=== PATIENT | female | born 1940 | race African-American/Black ===

== ENCOUNTER 2020-07-04 05:10 | Inpatient (IN) | payer MEDICARE, OTHER ==
[2020-07-04 05:46] LABS: #Basophils 0.1 thou/uL (0.0-0.2); #Eosinphils 0.1 thou/uL (0.0-0.7); #Lymphocytes 3.5 thou/uL (1.20-3.40); #Monocytes 0.7 thou/uL (0.11-0.59); #Neutrophils 4.4 thou/uL (1.40-6.50); %Eosinophils 1.4 % (0.0-10.0); %Lymphocytes 40.1 % (21.0-51.0); %Neutrophils 49.5 % (42.0-75.0); Hemoglobin 12.6 g/dL (12.0-16.0); Mean Corpuscular HGB CONC 31.4 g/dL (32.0-36.0); Mean Corpuscular Hemoglobin 29.2 pg (27.0-31.0); Mean Corpuscular Volume 93.1 fL (78.0-98.0); Platelet Count 289 thou/uL (130-400); RBC Distribution Width 13.1 % (11.5-14.5); White Blood Cell (WBC) Count 8.8 thou/uL (4.8-10.8)
[2020-07-04] MEDS ORDERED: Albuterol 200 PUFF (6.7GM INHALER) ONE (06:18)
[2020-07-04 06:20] LABS: ALT (SGPT) 59 U/L (8-55); AST (SGOT) 58 U/L (5-34); Albumin 3.7 g/dL (3.4-4.8); Alkaline Phosphatase 102 U/L (40-110); Anion Gap 14 mmol/L (10-20); BUN (Urea Nitrogen) 10 mg/dL (9.8-20.1); Bilirubin, Total 0.5 mg/dL (0.2-1.2); Calc. Creatinine Clearance 0 mL/min (70-130); Calcium 8.4 mg/dL (7.8-10.44); Carbon Dioxide 21 mmol/L (23-31); Chloride 105 mmol/L (98-107); Globulin 3.1 g/dL (2.4-3.5); Glucose 216 mg/dL (83-110); Lipase 43 U/L (8-78); Potassium 3.9 mmol/L (3.5-5.1); Protein, Total 6.8 g/dL (5.8-8.1); Sodium 136 mmol/L (136-145)
[2020-07-04] MEDS ORDERED: Magnesium 2 GM/50 ML BAG (IN WATER) ONE (06:20)
[2020-07-04] MEDS ORDERED: methylPREDNISolone Sod Succ/PF 125 MG/2 ML VIAL ONE (06:20)
[2020-07-04] MEDS ORDERED: Furosemide 40 MG/4 ML VIAL ONE (06:52)
[2020-07-04] MEDS ORDERED: Cepastat Lozenges 1 LOZ PO PRN (08:32)
[2020-07-04] MEDS ORDERED: Calcium Carbonate 500 MG ChewTAB PO PRN (08:32)
[2020-07-04] MEDS ORDERED: HumaLOG 300 UNITS/3 ML VIAL SC PRN (08:32)
[2020-07-04] MEDS ORDERED: hydrALAZINE 20 MG/ML VIAL SLOW IVP PRN (08:32)
[2020-07-04] MEDS ORDERED: Ondansetron PF 4 MG/2 ML Vial IVP PRN (08:32)
[2020-07-04] MEDS ORDERED: HYDROcodone/Acetaminophen 5/325 mg Tablet PO PRN (08:32)
[2020-07-04] MEDS ORDERED: Sodium Chloride 0.65% Nasal 44 ML BOT EA NARE PRN (08:32)
[2020-07-04] MEDS ORDERED: Nitroglycerin 0.4 MG TAB (25 Tab Bottle) SL PRN (08:32)
[2020-07-04] MEDS ORDERED: Benzonatate 100 MG CAP PO PRN (08:32)
[2020-07-04] MEDS ORDERED: Labetalol HCl 100 MG/20 ML VIAL SLOW IVP PRN (08:32)
[2020-07-04] MEDS ORDERED: Acetaminophen 500 MG TAB PO PRN (08:32)
[2020-07-04] MEDS ORDERED: Bisacodyl 10 MG SUPP PR PRN (08:32)
[2020-07-04] MEDS ORDERED: GUAIFENESIN SF SOLN 200 MG/10 ML UDCUP PO PRN (08:32)
[2020-07-04] MEDS ORDERED: Dextrose 50% Abboject 50 ML SYRINGE SLOW IVP PRN (08:32)
[2020-07-04] MEDS ORDERED: Dextrose 5% in Water 1,000 ML IV PRN (08:32)
[2020-07-04] MEDS ORDERED: Senokot S 8.6-50 MG TAB PO PRN (08:32)
[2020-07-04 08:41] LABS: SARS-CoV-2 NAA Rapid Test Not Detected (NotDetected)
[2020-07-04] MEDS ORDERED: Losartan 25 MG TAB PO SCH (09:00)
[2020-07-04] MEDS ORDERED: Insulin Glargine 20 UNITS in Pre-Filled Syringe 1 EACH SC SCH (09:00)
[2020-07-04 09:16] LABS: Troponin I Less than 0.010 ng/mL (< 0.028)
[2020-07-04] MEDS ORDERED: Carvedilol 3.125 MG TAB PO SCH (10:45)
[2020-07-04] MEDS ORDERED: Lantus 1000 UNITS/10 ML VIAL SC SCH (10:45)
[2020-07-04] MEDS ORDERED: Doxycycline 100 MG CAP PO SCH (10:45)
[2020-07-04] MEDS ORDERED: Aspirin Chewable 81 MG TAB PO SCH (10:45)
[2020-07-04] MEDS ORDERED: Cilostazol 100 MG TAB PO SCH (10:45)
[2020-07-04] MEDS: Cilostazol 100 MG TAB PO SCH (10:57)
[2020-07-04] MEDS: Magnesium Oxide 400 MG TAB PO SCH (11:00)
[2020-07-04] MEDS: Doxycycline 100 MG CAP PO SCH ×2 (11:01→22:53)
[2020-07-04] MEDS: Carvedilol 3.125 MG TAB PO SCH ×2 (11:01→22:53)
[2020-07-04] MEDS: Aspirin Chewable 81 MG TAB PO SCH (11:01)
[2020-07-04] MEDS: methylPREDNISolone Sod Succ 40 MG VIAL IVP SCH ×2 (11:04→18:05)
[2020-07-04 12:03] LABS: Troponin I 0.024 ng/mL (< 0.028)
[2020-07-04] MEDS: Furosemide 40 MG/4 ML VIAL SLOW IVP SCH (14:43)
[2020-07-04] MEDS: ALPRAZolam 0.5 MG TAB PO PRN (15:23)
[2020-07-04] MEDS ORDERED: Nitroglycerin 2% Ointment 1 INCH/1 GM Packet ONE (15:35)
[2020-07-04 15:46] VITALS: BMI 25.2
[2020-07-04] MEDS ORDERED: Furosemide 20 MG/2 ML VIAL SLOW IVP SCH (21:00)
[2020-07-04] MEDS ORDERED: Spironolactone 25 MG TAB PO SCH (21:00)
[2020-07-04] MEDS: Rosuvastatin 20 MG TAB PO SCH (22:53)
[2020-07-04] MEDS: Nitroglycerin 2% Ointment 1 INCH/1 GM Packet TOP SCH (22:55)
[2020-07-04] MEDS: Lantus 1000 UNITS/10 ML VIAL SC SCH (23:04)
[2020-07-05 03:32] LABS: #Lymphocytes 1.3 thou/uL (1.20-3.40); #Monocytes 0.3 thou/uL (0.11-0.59); #Neutrophils 6.9 thou/uL (1.40-6.50); %Lymphocytes 15.2 % (21.0-51.0); %Monocytes 3.8 % (0.0-10.0); Hemoglobin 12.2 g/dL (12.0-16.0); Mean Corpuscular HGB CONC 33.5 g/dL (32.0-36.0); Mean Corpuscular Hemoglobin 30.9 pg (27.0-31.0); Mean Corpuscular Volume 92.2 fL (78.0-98.0); Platelet Count 253 thou/uL (130-400); RBC Distribution Width 12.9 % (11.5-14.5); Red Blood Cell (RBC) Count 3.94 mill/uL (4.20-5.40); White Blood Cell (WBC) Count 8.6 thou/uL (4.8-10.8)
[2020-07-05 03:56] LABS: ALT (SGPT) 46 U/L (8-55); AST (SGOT) 36 U/L (5-34); Albumin 3.4 g/dL (3.4-4.8); Alkaline Phosphatase 88 U/L (40-110); Anion Gap 16 mmol/L (10-20); BUN (Urea Nitrogen) 10 mg/dL (9.8-20.1); Bilirubin, Total 0.5 mg/dL (0.2-1.2); Calc. Creatinine Clearance 71 mL/min (70-130); Carbon Dioxide 21 mmol/L (23-31); Chloride 107 mmol/L (98-107); Globulin 3.2 g/dL (2.4-3.5); Glucose 135 mg/dL (83-110); Magnesium 1.8 mg/dL (1.6-2.6); Potassium 3.6 mmol/L (3.5-5.1); Protein, Total 6.6 g/dL (5.8-8.1); Sodium 140 mmol/L (136-145)
[2020-07-05] MEDS: methylPREDNISolone Sod Succ 40 MG VIAL IVP SCH ×3 (07:23→12:13)
[2020-07-05] MEDS: Furosemide 40 MG/4 ML VIAL SLOW IVP SCH ×2 (07:23→14:09)
[2020-07-05] MEDS: Lantus 1000 UNITS/10 ML VIAL SC SCH ×2 (08:41→20:42)
[2020-07-05] MEDS: Aspirin Chewable 81 MG TAB PO SCH (08:42)
[2020-07-05] MEDS: Magnesium Oxide 400 MG TAB PO SCH (08:42)
[2020-07-05] MEDS: Cilostazol 100 MG TAB PO SCH (08:42)
[2020-07-05] MEDS: Doxycycline 100 MG CAP PO SCH ×2 (08:43→20:42)
[2020-07-05] MEDS: Carvedilol 3.125 MG TAB PO SCH (08:43)
[2020-07-05] MEDS: Nitroglycerin 2% Ointment 1 INCH/1 GM Packet TOP SCH (08:43)
[2020-07-05] MEDS: Spironolactone 25 MG TAB PO SCH (08:43)
[2020-07-05] MEDS: HumaLOG 300 UNITS/3 ML VIAL SC PRN ×2 (12:14→17:44)
[2020-07-05] MEDS: hydrALAZINE 10 MG TAB PO SCH ×2 (14:09→20:41)
[2020-07-05] MEDS: Rosuvastatin 20 MG TAB PO SCH (20:41)
[2020-07-05] MEDS: Carvedilol 6.25 MG TAB PO SCH (20:42)
[2020-07-06 03:43] LABS: #Monocytes 0.9 thou/uL (0.11-0.59); #Neutrophils 12.2 thou/uL (1.40-6.50); %Basophils 0.2 % (0.0-1.0); %Lymphocytes 12.9 % (21.0-51.0); %Neutrophils 80.9 % (42.0-75.0); Hemoglobin 10.9 g/dL (12.0-16.0); Mean Corpuscular HGB CONC 32.8 g/dL (32.0-36.0); Mean Corpuscular Hemoglobin 30.2 pg (27.0-31.0); Platelet Count 257 thou/uL (130-400); RBC Distribution Width 12.9 % (11.5-14.5); White Blood Cell (WBC) Count 15.1 thou/uL (4.8-10.8)
[2020-07-06] MEDS: Furosemide 40 MG/4 ML VIAL SLOW IVP SCH ×2 (05:25→15:03)
[2020-07-06] MEDS: Lantus 1000 UNITS/10 ML VIAL SC SCH ×2 (08:11→21:15)
[2020-07-06] MEDS: hydrALAZINE 10 MG TAB PO SCH ×3 (08:12→21:15)
[2020-07-06] MEDS: Doxycycline 100 MG CAP PO SCH ×2 (08:12→21:15)
[2020-07-06] MEDS: Spironolactone 25 MG TAB PO SCH (08:12)
[2020-07-06] MEDS: Aspirin Chewable 81 MG TAB PO SCH (08:12)
[2020-07-06] MEDS: Carvedilol 6.25 MG TAB PO SCH ×2 (08:13→21:14)
[2020-07-06] MEDS: Magnesium Oxide 400 MG TAB PO SCH (08:13)
[2020-07-06 09:02] LABS: Anion Gap 15 mmol/L (10-20); BUN (Urea Nitrogen) 17 mg/dL (9.8-20.1); Calc. Creatinine Clearance 57 mL/min (70-130); Calcium 9.1 mg/dL (7.8-10.44); Carbon Dioxide 26 mmol/L (23-31); Chloride 105 mmol/L (98-107); Glucose 147 mg/dL (83-110); Potassium 3.1 mmol/L (3.5-5.1); Sodium 143 mmol/L (136-145)
[2020-07-06] MEDS: Rosuvastatin 20 MG TAB PO SCH (21:15)
[2020-07-06] MEDS: ALPRAZolam 0.5 MG TAB PO PRN (21:26)
[2020-07-07 03:53] LABS: #Basophils 0.2 thou/uL (0.0-0.2); #Lymphocytes 4.2 thou/uL (1.20-3.40); #Monocytes 0.8 thou/uL (0.11-0.59); #Neutrophils 6.8 thou/uL (1.40-6.50); %Basophils 1.3 % (0.0-1.0); %Eosinophils 0.3 % (0.0-10.0); %Lymphocytes 35.3 % (21.0-51.0); %Monocytes 6.4 % (0.0-10.0); %Neutrophils 56.7 % (42.0-75.0); Hemoglobin 11.9 g/dL (12.0-16.0); Mean Corpuscular HGB CONC 32.4 g/dL (32.0-36.0); Mean Corpuscular Volume 92.5 fL (78.0-98.0); Platelet Count 262 thou/uL (130-400); RBC Distribution Width 13.1 % (11.5-14.5); Red Blood Cell (RBC) Count 3.97 mill/uL (4.20-5.40)
[2020-07-07 04:11] LABS: Anion Gap 11 mmol/L (10-20); BUN (Urea Nitrogen) 13 mg/dL (9.8-20.1); Calc. Creatinine Clearance 70 mL/min (70-130); Calcium 8.9 mg/dL (7.8-10.44); Carbon Dioxide 31 mmol/L (23-31); Chloride 107 mmol/L (98-107); Glucose 72 mg/dL (83-110); Sodium 146 mmol/L (136-145)
[2020-07-07 04:15] LABS: Potassium 2.9 mmol/L (3.5-5.1)
[2020-07-07] MEDS ORDERED: Electrolyte Replacement Protocol 1 EACH FS PRN (04:23)
[2020-07-07] MEDS: Furosemide 40 MG/4 ML VIAL SLOW IVP SCH (04:47)
[2020-07-07] MEDS: Potassium Chloride 20 MEQ TAB PO SCH ×2 (05:05→08:50)
[2020-07-07 08:49] LABS: Magnesium 1.8 mg/dL (1.6-2.6); Phosphorus 3.2 mg/dL (2.3-4.7)
[2020-07-07] MEDS: Carvedilol 6.25 MG TAB PO SCH (08:50)
[2020-07-07] MEDS: hydrALAZINE 10 MG TAB PO SCH ×2 (08:50→15:25)
[2020-07-07] MEDS: Magnesium Oxide 400 MG TAB PO SCH (08:50)
[2020-07-07] MEDS: Aspirin Chewable 81 MG TAB PO SCH (08:50)
[2020-07-07] MEDS: Spironolactone 25 MG TAB PO SCH (08:50)
[2020-07-07] MEDS: Doxycycline 100 MG CAP PO SCH (08:50)
[2020-07-07] MEDS: Furosemide 40 MG TAB PO SCH ×2 (08:55→15:25)
[2020-07-07 10:28] VITALS: BP 120/69
[2020-07-07] MEDS ORDERED: Magnesium 2 GM/50 ML 2 GM in Premix Bag 1 BAG IVPB SCH (10:45)
[2020-07-07 14:46] LABS: Potassium 3.8 mmol/L (3.5-5.1)
[2020-07-07 16:30] VITALS: TEMP 97.1
[2020-07-07] MEDS ORDERED: Potassium Chloride 20 MEQ TAB PO SCH (16:30)
== END 2020-07-07 18:35 | disposition home health service (06) | DRG 291 ==
LOC: ERS 05:10 → IMCU/EMU 07:31
PROVIDERS: ADMIT Internal Medicine; ATTEND Internal Medicine
DX: I11.0 Hypertensive heart disease with heart failure (principal); J96.01 Acute respiratory failure with hypoxia; J44.1 Chronic obstructive pulmonary disease with (acute) exacerbation; I50.23 Acute on chronic systolic (congestive) heart failure; Z20.822 Contact with and (suspected) exposure to COVID-19; E11.51 Type 2 diabetes mellitus with diabetic peripheral angiopathy without gangrene; I25.10 Atherosclerotic heart disease of native coronary artery without angina pectoris; I08.1 Rheumatic disorders of both mitral and tricuspid valves; I09.89 Other specified rheumatic heart diseases; E87.6 Hypokalemia; E78.5 Hyperlipidemia, unspecified; K21.9 Gastro-esophageal reflux disease without esophagitis; F17.210 Nicotine dependence, cigarettes, uncomplicated; K76.1 Chronic passive congestion of liver; E11.59 Type 2 diabetes mellitus with other circulatory complications; Z88.8 Allergy status to other drugs, medicaments and biological substances; I25.2 Old myocardial infarction; Z95.5 Presence of coronary angioplasty implant and graft; Z90.710 Acquired absence of both cervix and uterus; Z79.82 Long term (current) use of aspirin; Z79.899 Other long term (current) drug therapy
CPT/HCPCS: 0240U; 36415; 36416; 71045; 80048; 80053; 83690; 83735; 83880; 84100; 84443; 84484; 85025; 93005; 93306; 93798; 94640; 94660; 94664; 96365; 96375; J0360; J1815; J1940; J2920; J2930; J3475; J7620

== ENCOUNTER 2022-12-21 13:57 | Outpatient (CLI) | payer MEDICARE, OTHER | END 2022-12-21 13:58 | disposition home or self-care (01) | LOC: BICCT 13:57 | PROVIDERS: ATTEND Neurological Surgery | DX: S06.5X0D Traumatic subdural hemorrhage without loss of consciousness, subsequent encounter (principal) | CPT/HCPCS: 70450 ==

== ENCOUNTER 2022-12-22 17:05 | Inpatient (IN) | payer MEDICARE, OTHER ==
[2022-12-22 18:11] LABS: #Eosinphils 0.3 thou/uL (0.0-0.7); #Monocytes 0.7 thou/uL (0.11-0.59); #Neutrophils 4.2 thou/uL (1.40-6.50); %Basophils 0.5 % (0.0-1.0); %Eosinophils 4.7 % (0.0-10.0); %Lymphocytes 21.4 % (21.0-51.0); %Monocytes 10.5 % (0.0-10.0); %Neutrophils 62.7 % (42.0-75.0); Hematocrit 32.9 % (36.0-47.0); Hemoglobin 10.5 g/dL (12.0-16.0); Mean Corpuscular HGB CONC 31.9 g/dL (32.0-36.0); Mean Corpuscular Hemoglobin 29.7 pg (27.0-31.0); Mean Corpuscular Volume 92.9 fl (78.0-98.0); Mean Platelet Volume 10.5 fL (7.4-10.4); Platelet Count 133 10x3/uL (130-400); RBC Distribution Width 14.8 % (11.5-14.5); Red Blood Cell (RBC) Count 3.54 mill/uL (4.20-5.40); White Blood Cell (WBC) Count 6.6 10x3/uL (4.8-10.8)
[2022-12-22 18:34] LABS: ALT (SGPT) 11 U/L (8-55); AST (SGOT) 24 U/L (5-34); Alkaline Phosphatase 78 U/L (40-110); Anion Gap 13 mmol/L (10-20); BUN (Urea Nitrogen) 19 mg/dL (9.8-20.1); Bilirubin, Total 0.3 mg/dL (0.2-1.2); Calc. Creatinine Clearance 0 mL/min (70-130); Calcium 9.2 mg/dL (7.8-10.44); Carbon Dioxide 23 mmol/L (23-31); Chloride 109 mmol/L (98-107); Estimated GFR 49; Globulin 3.7 g/dL (2.4-3.5); Glucose 146 mg/dL (83-110); Potassium 4.2 mmol/L (3.5-5.1); Protein, Total 7.7 g/dL (5.8-8.1); Sodium 141 mmol/L (136-145)
[2022-12-22] MEDS ORDERED: Acetaminophen 650 MG Suppository PR PRN (18:57)
[2022-12-22] MEDS ORDERED: Ondansetron PF 4 MG/2 ML Vial IVP PRN (18:57)
[2022-12-22] MEDS ORDERED: Acetaminophen 325 MG TAB PO PRN (18:57)
[2022-12-22] MEDS ORDERED: Ondansetron ODT 4 MG TAB PO PRN (18:57)
[2022-12-22 19:05] LABS: INR-International Normal Ratio 1.1; PTT 31.7 sec (22.9-36.1); Prothrombin Time 14.4 sec (12.0-14.7)
[2022-12-22 20:30] VITALS: BMI 20.6
[2022-12-22] MEDS ORDERED: HYDROcodone/Acetaminophen 5/325 mg Tablet PO PRN (20:56)
[2022-12-22] MEDS ORDERED: Carvedilol 6.25 MG TAB PO SCH (21:00)
[2022-12-22] MEDS ORDERED: Polyethylene Glycol 3350 17 GM Packet PO PRN (21:13)
[2022-12-22] MEDS ORDERED: Glucagon 1 MG/ML KIT IM PRN (21:30)
[2022-12-22] MEDS ORDERED: Dextrose 5% in Water 1,000 ML IV PRN (21:30)
[2022-12-22] MEDS ORDERED: Dextrose 50% Abboject 50 ML SYRINGE SLOW IVP PRN (21:30)
[2022-12-22] MEDS ORDERED: HumaLOG 300 UNITS/3 ML VIAL SC PRN ×2 (21:30)
[2022-12-22] MEDS ORDERED: Dextrose 5 % And 0.9 % NaCl 500 ML IV SCH (23:45)
[2022-12-23 05:17] LABS: #Eosinphils 0.3 thou/uL (0.0-0.7); #Monocytes 0.8 thou/uL (0.11-0.59); #Neutrophils 3.8 thou/uL (1.40-6.50); %Basophils 0.4 % (0.0-1.0); %Eosinophils 4.3 % (0.0-10.0); %Lymphocytes 32.2 % (21.0-51.0); %Monocytes 11.4 % (0.0-10.0); %Neutrophils 51.6 % (42.0-75.0); Hematocrit 31.7 % (36.0-47.0); Hemoglobin 10.1 g/dL (12.0-16.0); Mean Corpuscular HGB CONC 31.9 g/dL (32.0-36.0); Mean Corpuscular Hemoglobin 29.9 pg (27.0-31.0); Mean Corpuscular Volume 93.8 fl (78.0-98.0); Mean Platelet Volume 10.4 fL (7.4-10.4); Platelet Count 143 10x3/uL (130-400); Red Blood Cell (RBC) Count 3.38 mill/uL (4.20-5.40); White Blood Cell (WBC) Count 7.4 10x3/uL (4.8-10.8)
[2022-12-23 05:42] LABS: Anion Gap 12 mmol/L (10-20); BUN (Urea Nitrogen) 14 mg/dL (9.8-20.1); Calc. Creatinine Clearance 44 mL/min (70-130); Calcium 9.3 mg/dL (7.8-10.44); Carbon Dioxide 23 mmol/L (23-31); Chloride 112 mmol/L (98-107); Estimated GFR 59; Glucose 111 mg/dL (83-110); Potassium 3.9 mmol/L (3.5-5.1); Sodium 143 mmol/L (136-145)
[2022-12-23] MEDS ORDERED: Acetaminophen 325 MG TAB PO PRN (09:14)
[2022-12-23] MEDS: Carvedilol 6.25 MG TAB PO SCH ×2 (09:22→17:33)
[2022-12-23] MEDS: Losartan 25 MG TAB PO SCH (09:22)
[2022-12-23] MEDS: Empagliflozin 10 MG TAB PO SCH (09:22)
[2022-12-23] MEDS: Multivit, Therapeutic 1 TAB PO SCH (09:22)
[2022-12-23] MEDS: Brimonidine Tartrate 0.2% Ophth Soln 5 ml Bottle EA EYE SCH ×2 (09:23→20:11)
[2022-12-23] MEDS: Brinzolamide 1% Ophth SUSP 10 ml Bottle EA EYE SCH ×2 (09:24→20:11)
[2022-12-23] MEDS ORDERED: Lidocaine 1% (PF) 30 ML VIAL ONE (12:23)
[2022-12-23] MEDS: Ferrous Sulfate 325 MG TAB PO SCH (17:33)
[2022-12-23] MEDS ORDERED: Mirtazapine 15 MG TAB PO SCH (21:00)
[2022-12-23] MEDS ORDERED: Magnesium Oxide 400 MG TAB PO SCH (21:00)
[2022-12-23] MEDS ORDERED: Rosuvastatin 20 MG TAB PO SCH (21:00)
[2022-12-23] MEDS ORDERED: Latanoprost 0.005% Ophth Soln 2.5 ml Bottle EA EYE SCH (21:00)
[2022-12-24 04:39] LABS: #Eosinphils 0.2 thou/uL (0.0-0.7); #Monocytes 0.7 thou/uL (0.11-0.59); #Neutrophils 3.8 thou/uL (1.40-6.50); %Basophils 0.3 % (0.0-1.0); %Eosinophils 3.5 % (0.0-10.0); %Lymphocytes 27.5 % (21.0-51.0); %Neutrophils 57.5 % (42.0-75.0); Hematocrit 31.5 % (36.0-47.0); Mean Corpuscular HGB CONC 31.7 g/dL (32.0-36.0); Mean Corpuscular Hemoglobin 29.3 pg (27.0-31.0); Mean Corpuscular Volume 92.4 fl (78.0-98.0); Mean Platelet Volume 10.3 fL (7.4-10.4); Platelet Count 146 10x3/uL (130-400); RBC Distribution Width 14.9 % (11.5-14.5); Red Blood Cell (RBC) Count 3.41 mill/uL (4.20-5.40); White Blood Cell (WBC) Count 6.7 10x3/uL (4.8-10.8)
[2022-12-24 05:12] LABS: Anion Gap 14 mmol/L (10-20); BUN (Urea Nitrogen) 15 mg/dL (9.8-20.1); Calc. Creatinine Clearance 41 mL/min (70-130); Calcium 9.2 mg/dL (7.8-10.44); Carbon Dioxide 19 mmol/L (23-31); Chloride 111 mmol/L (98-107); Estimated GFR 55; Glucose 93 mg/dL (83-110); Potassium 3.8 mmol/L (3.5-5.1); Sodium 140 mmol/L (136-145)
[2022-12-24] MEDS: Carvedilol 6.25 MG TAB PO SCH ×2 (09:42→16:16)
[2022-12-24] MEDS: Multivit, Therapeutic 1 TAB PO SCH (09:42)
[2022-12-24] MEDS: Empagliflozin 10 MG TAB PO SCH (09:43)
[2022-12-24] MEDS: Brinzolamide 1% Ophth SUSP 10 ml Bottle EA EYE SCH (09:43)
[2022-12-24] MEDS: Losartan 25 MG TAB PO SCH (09:43)
[2022-12-24] MEDS: Ferrous Sulfate 325 MG TAB PO SCH (09:43)
[2022-12-24] MEDS: Brimonidine Tartrate 0.2% Ophth Soln 5 ml Bottle EA EYE SCH (09:44)
[2022-12-24 17:43] VITALS: BP 112/56; TEMP 98.9
[2022-12-25] MEDS ORDERED: FLU VACC QS2023(65UP)/MF59C/PF 60 MCG/0.5 ML SYRINGE IM ONE (09:00)
[2022-12-25] MEDS ORDERED: Furosemide 20 MG TAB PO SCH (09:00)
== END 2022-12-24 18:45 | disposition home or self-care (01) | DRG 299 ==
LOC: ERS 17:05 → 2NO 19:04 → OBSVTOIN 12-23 11:40
PROVIDERS: ADMIT Family Medicine; ATTEND Internal Medicine
PROC: 06H03DZ Insertion of Intraluminal Device into Inferior Vena Cava, Percutaneous Approach (ICD-10-PCS; principal; 2022-12-23)
DX: I82.402 Acute embolism and thrombosis of unspecified deep veins of left lower extremity (principal); I62.01 Nontraumatic acute subdural hemorrhage; I62.03 Nontraumatic chronic subdural hemorrhage; I50.22 Chronic systolic (congestive) heart failure; I11.0 Hypertensive heart disease with heart failure; K21.9 Gastro-esophageal reflux disease without esophagitis; E11.9 Type 2 diabetes mellitus without complications; I25.2 Old myocardial infarction; I25.10 Atherosclerotic heart disease of native coronary artery without angina pectoris; Z95.818 Presence of other cardiac implants and grafts; Z88.8 Allergy status to other drugs, medicaments and biological substances; Z79.899 Other long term (current) drug therapy; Z95.810 Presence of automatic (implantable) cardiac defibrillator; Z90.710 Acquired absence of both cervix and uterus; Z98.890 Other specified postprocedural states
CPT/HCPCS: 36415; 36416; 37191; 70450; 80048; 80053; 85025; 85610; 85730; 86850; 86900; 86901; 93005; C1769; C1880; C1894; J2001; J7042